=== PATIENT | male | born 1955 | race Caucasian/White ===

== ENCOUNTER 2019-02-10 12:30 | Inpatient (IN) | payer SELFPAY ==
[~2019-02-10] VITALS: Ht 175.3 cm; Wt 81.5 kg
[2019-02-10] VITALS (13 sets, daily range): BP systolic 124–165; BP diastolic 46–84
[~2019-02-10 12:30] MED LIST: AMLO-150 PO; CLON0.1T22 PO
[2019-02-10] MEDS ORDERED: SODIUM CHLORIDE 0.9% 1,000 ML IV ONE (12:35)
--- NOTE | 2019-02-10 12:41 | NUR ---
PT ARRIVES TO ED WITH RESTLESS LEGS AND ANKLE PAIN. PT ALSO REPORTS USING DRUGS (METH, OXYCOTIN) LAST NIGHT AND TODAY. PT REPORTS HE IS UNSURE WHY THE AMBULANCE WAS CALLED BUT NOW HAS A RIDE TO THE [facility]. PT PLACED IN BED AND AT THIS TIME HAS NO APPARENT DISTRESS OR NEEDS AT THIS TIME. VSS AND BG 110
[2019-02-10 12:51] LABS: MEAN CORPUSCULAR HEMOGLOBIN 22.3 pg (27.5-34.5); MEAN PLATELET VOLUME 7.1 fL (7.4-10.4); PLATELET COUNT 442 x10^3/uL (130-400); RED BLOOD COUNT 2.37 x10^6/uL (4.38-5.82); RED CELL DISTRIBUTION WIDTH 23.9 % (9.4-14.8)
[2019-02-10] MEDS ORDERED: PANTOPRAZOLE 40 MG IV IVPush ONE (13:00)
[2019-02-10] MEDS ORDERED: SODIUM CHLORIDE FLUSH 10ML SYR IVF ONE (13:00)
[2019-02-10 13:01] LABS: ALANINE AMINOTRANSFERASE 73 U/L (12-78); ALBUMIN 3.6 g/dL (3.4-5.0); ANION GAP 18 mmol/L (5-15); CALCIUM 8.1 mg/dL (8.5-10.1); CHLORIDE 107 mmol/L (98-107)
--- NOTE | 2019-02-10 13:02 | NUR ---
PIV PLACED IN PT, CRITICAL LABS REPORTS. PA AWARE AND RETYPE ORDERED.
[2019-02-10 13:04] LABS: ALKALINE PHOSPHATASE 98 U/L (45-117); BILIRUBIN,TOTAL 0.6 mg/dL (0.2-1.0); TOTAL PROTEIN 8.4 g/dL (6.4-8.2)
[2019-02-10] MEDS ORDERED: SODIUM BICARBONATE 1 MEQ/ML, 50ML VIAL ONE (13:14)
[2019-02-10] MEDS ORDERED: INSULIN SINGLE DOSE, ER SQ-INSULIN ONE (13:15)
[2019-02-10] MEDS ORDERED: CALCIUM CHLORIDE 10%, 10ML SYR ONE (13:16)
[2019-02-10] MEDS ORDERED: PANTOPRAZOLE 40 MG IV ONE (13:16)
[2019-02-10 13:17] LABS: BASOPHILS # (AUTO) 0.06 x10^3/uL (0-0.1); BASOPHILS % (AUTO) 0 % (0-1); EOSINOPHILS # (AUTO) 0.01 x10^3/uL (0-0.4); EOSINOPHILS % (AUTO) 0 % (1-7); LYMPHOCYTES # (AUTO) 1.34 x10^3/uL (1-3.4); LYMPHOCYTES % (AUTO) 10 % (22-44); MD MORPH REVIEW ONLY; MONOCYTES % (AUTO) 7 % (2-9); NEUTROPHILS % (AUTO) 83 % (42-75)
[2019-02-10 13:18] LABS: <PLATELET ESTIMATE> INCREASED; <PLT MORPHOLOGY> NORMAL PLT MORPH
[2019-02-10 13:19] LABS: ANISOCYTOSIS 3+; MICROCYTOSIS 2+
[2019-02-10 13:20] LABS: HYPOCHROMIA 1+; OVALOCYTES 1+; POLYCHROMASIA 1+
[2019-02-10 13:24] LABS: BASOPHILS # (AUTO) 0.31 x10^3/uL (0-0.1); BASOPHILS % (AUTO) 2 % (0-1); EOSINOPHILS % (AUTO) 0 % (1-7); LYMPHOCYTES # (AUTO) 0.94 x10^3/uL (1-3.4); LYMPHOCYTES % (AUTO) 7 % (22-44); MD NO; MEAN CORPUSCULAR HEMOGLOBIN 21.6 pg (27.5-34.5); MEAN CORPUSCULAR VOLUME 71.9 fL (81-97); MEAN PLATELET VOLUME 7.4 fL (7.4-10.4); MONOCYTES # (AUTO) 0.79 x10^3/uL (0.2-0.8); MONOCYTES % (AUTO) 6 % (2-9); NEUTROPHILS # (AUTO) 11.26 x10^3/uL (1.8-6.8); NEUTROPHILS % (AUTO) 85 % (42-75); PLATELET COUNT 467 x10^3/uL (130-400); RED BLOOD COUNT 2.36 x10^6/uL (4.38-5.82); RED CELL DISTRIBUTION WIDTH 24.4 % (9.4-14.8)
[2019-02-10] MEDS ORDERED: CALCIUM CHLORIDE 10%, 10ML SYR IVPush ONE (13:30)
[2019-02-10] MEDS ORDERED: SODIUM BICARB 8.4%, 50ML SYRINGE IVPush ONE (13:30)
[2019-02-10] MEDS ORDERED: INSULIN REGULAR 100 UNITS/ML, 3ML VIAL IVPush ONE (13:30)
[2019-02-10] MEDS ORDERED: DEXTROSE 50%, 50ML SYRINGE IVPush ONE (13:30)
[2019-02-10 13:34] LABS: INTERNATIONAL NORMALIZED RATIO 1.4 (0.93-1.1); PROTHROMBIN TIME 14.5 Seconds (9.6-11.5)
--- NOTE | 2019-02-10 13:40 | NUR ---
SECOND PIV PLACED, PT MEDICATED PER EMAR.
[2019-02-10 13:57] LABS: ACETONE, SERUM Small (20mg/dL) mg/dL (Negative)
[2019-02-10] MEDS ORDERED: SODIUM CHLORIDE FLUSH 10ML SYR IVF PRN (14:00)
--- NOTE | 2019-02-10 14:32 | NUR ---
BLOOD STARTED, GIANLUCA PALACIOS SECOND CHECK. BLOOD ON PUMP AT THIS TIME.
--- NOTE | 2019-02-10 15:08 | NUR ---
RN ON FLOOR INFORMER OF VITALS NEEDED TO COMPLETE ON BLOOD TRANSFUSION.
[2019-02-10] MEDS ORDERED: DOCUSATE 100 MG CAPSULE PO PRN (16:30)
[2019-02-10] MEDS ORDERED: ONDANSETRON 2MG/ML, 2ML IVPush PRN (16:30)
[2019-02-10] MEDS ORDERED: LORazepam 2 MG/ML, 1ML IV PRN ×5 (16:30)
[2019-02-10] MEDS ORDERED: CYCLOBENZAPRINE 10 MG TABLET PO PRN (16:30)
[2019-02-10] MEDS ORDERED: GUAIFENESIN/COD200MG-20MG/10ML LIQUID PO PRN (16:30)
[2019-02-10] MEDS ORDERED: ACETAMINOPHEN 325 MG TABLET PO PRN (16:30)
[2019-02-10] MEDS ORDERED: NITROGLYCERIN 0.4 MG BOTTLE (25 TABS) SL PRN (16:30)
[2019-02-10] MEDS: LACTULOSE 20 GM/30 ML UDC PO SCH ×2 (17:00→21:03)
[2019-02-10] MEDS: LACTATED RINGERS 1,000 ML IV SCH (17:08)
[2019-02-10 17:49] LABS: ANION GAP 12 mmol/L (5-15); CALCIUM 8.3 mg/dL (8.5-10.1); CHLORIDE 107 mmol/L (98-107)
[2019-02-10] MEDS: THIAMINE 100MG TABLET PO SCH (21:03)
[2019-02-10 21:22] LABS: MICROSCOPIC NOT IND
[2019-02-10 21:29] LABS: CULTURE INDICATED? NO
[2019-02-10 21:36] LABS: AMPHETAMINE SCREEN, URINE Positive (Negative); BARBITURATE SCREEN, URINE Negative (Negative); BENZODIAZEPINE SCREEN, URINE Positive (Negative); CANNABINOID SCREEN, URINE Negative (Negative); CHLORIDE,URINE RANDOM 26 mmol/L; COCAINE SCREEN, URINE Negative (Negative); METHADONE SCREEN, URINE Negative (Negative); OPIATE SCREEN, URINE Positive (Negative); POTASSIUM,URINE RANDOM 75 mmol/L; PROTEIN/CREATININE RATIO,URINE 262 (0-200); SODIUM,URINE RANDOM 25 mmol/L; TOTAL PROTEIN,URINE RANDOM 32 mg/dL (0-12)
[2019-02-10 21:40] LABS: OSMOLALITY,URINE 475 mOsm/kg (500-850)
[2019-02-11] MEDS: LACTATED RINGERS 1,000 ML IV SCH ×3 (01:27→18:24)
[2019-02-11 01:57] VITALS: BP_SYST 138; BP_SYST 176; BP_DIAS 76; BP_DIAS 77
[2019-02-11 06:44] VITALS: BP 152/91
[2019-02-11 07:01] LABS: MEAN CORPUSCULAR HEMOGLOBIN 24.8 pg (27.5-34.5); MEAN CORPUSCULAR HGB CONC 32.7 g/dL (33.2-36.2); MEAN CORPUSCULAR VOLUME 75.9 fL (81-97); MEAN PLATELET VOLUME 6.8 fL (7.4-10.4); PLATELET COUNT 243 x10^3/uL (130-400); RED BLOOD COUNT 3.23 x10^6/uL (4.38-5.82); RED CELL DISTRIBUTION WIDTH 21.6 % (9.4-14.8)
[2019-02-11 07:10] LABS: ALANINE AMINOTRANSFERASE 181 U/L (12-78); ALBUMIN 3.3 g/dL (3.4-5.0); ANION GAP 6 mmol/L (5-15); CALCIUM 7.9 mg/dL (8.5-10.1); CHLORIDE 109 mmol/L (98-107); CREATININE 1.69 mg/dL (0.7-1.3)
[2019-02-11 07:12] LABS: ALKALINE PHOSPHATASE 96 U/L (45-117); BILIRUBIN,TOTAL 0.6 mg/dL (0.2-1.0); TOTAL PROTEIN 8.1 g/dL (6.4-8.2)
[2019-02-11 07:21] LABS: BASOPHILS # (AUTO) 0.05 x10^3/uL (0-0.1); BASOPHILS % (AUTO) 1 % (0-1); EOSINOPHILS # (AUTO) 0.22 x10^3/uL (0-0.4); EOSINOPHILS % (AUTO) 3 % (1-7); LYMPHOCYTES # (AUTO) 1.14 x10^3/uL (1-3.4); LYMPHOCYTES % (AUTO) 15 % (22-44); MD SCAN; MONOCYTES # (AUTO) 0.64 x10^3/uL (0.2-0.8); MONOCYTES % (AUTO) 9 % (2-9); NEUTROPHILS # (AUTO) 5.42 x10^3/uL (1.8-6.8); NEUTROPHILS % (AUTO) 73 % (42-75)
[2019-02-11] MEDS ORDERED: ERGOCALCIFEROL 50,000 UNIT CAPSULE PO SCH (09:00)
[2019-02-11] MEDS: LACTULOSE 20 GM/30 ML UDC PO SCH (10:50)
[2019-02-11] MEDS: MULTIVITAMINS/MINERALS TABLET PO SCH (10:51)
[2019-02-11] MEDS: THIAMINE 100MG TABLET PO SCH ×2 (10:51→20:25)
[2019-02-11] MEDS: FOLIC ACID 1 MG TABLET PO SCH (10:51)
[2019-02-11] MEDS: IRON SUCROSE COMPLEX 100MG/5ML IV SCH (10:51)
[2019-02-11 13:39] VITALS: BP 164/86
[2019-02-11 14:18] LABS: OCCULT BLOOD POSITIVE (NEGATIVE)
[2019-02-11] MEDS: PANTOPROZOLE 40MG TABLET PO SCH (15:55)
[2019-02-11 18:45] VITALS: BP 171/84
[2019-02-11 20:26] VITALS: BP 178/84
[2019-02-11 22:02] VITALS: BP 173/83
[2019-02-11] MEDS: hydrALAzine 20 MG/ML, 1ML IVPush PRN (22:03)
[2019-02-11] MEDS: OXYcodone IR 5MG TABLET PO PRN (22:03)
[2019-02-12] VITALS (7 sets, daily range): BP systolic 161–177; BP diastolic 79–90
[2019-02-12] MEDS: LACTATED RINGERS 1,000 ML IV SCH (02:12)
[2019-02-12] MEDS: PANTOPROZOLE 40MG TABLET PO SCH (05:21)
[2019-02-12 06:02] LABS: ALANINE AMINOTRANSFERASE 161 U/L (12-78); ALBUMIN 2.9 g/dL (3.4-5.0); ANION GAP 6 mmol/L (5-15); CALCIUM 7.7 mg/dL (8.5-10.1); CHLORIDE 107 mmol/L (98-107)
[2019-02-12 06:05] LABS: ALKALINE PHOSPHATASE 95 U/L (45-117); BILIRUBIN,TOTAL 0.4 mg/dL (0.2-1.0); CREATININE 0.91 mg/dL (0.7-1.3); TOTAL PROTEIN 7.4 g/dL (6.4-8.2)
[2019-02-12 06:11] LABS: MEAN CORPUSCULAR HEMOGLOBIN 24.6 pg (27.5-34.5); MEAN CORPUSCULAR HGB CONC 32.5 g/dL (33.2-36.2); MEAN CORPUSCULAR VOLUME 75.7 fL (81-97); MEAN PLATELET VOLUME 6.5 fL (7.4-10.4); PLATELET COUNT 195 x10^3/uL (130-400); RED BLOOD COUNT 3.14 x10^6/uL (4.38-5.82); RED CELL DISTRIBUTION WIDTH 22.4 % (9.4-14.8)
[2019-02-12 06:40] LABS: MD MORPH REVIEW ONLY
[2019-02-12 06:42] LABS: ANISOCYTOSIS 2+; BASOPHILS # (AUTO) 0.03 x10^3/uL (0-0.1); BASOPHILS % (AUTO) 1 % (0-1); EOSINOPHILS # (AUTO) 0.09 x10^3/uL (0-0.4); EOSINOPHILS % (AUTO) 2 % (1-7); HYPOCHROMIA 1+; LYMPHOCYTES % (AUTO) 16 % (22-44); MICROCYTOSIS 1+; MONOCYTES # (AUTO) 0.55 x10^3/uL (0.2-0.8); MONOCYTES % (AUTO) 10 % (2-9); NEUTROPHILS # (AUTO) 4.12 x10^3/uL (1.8-6.8); NEUTROPHILS % (AUTO) 73 % (42-75); POLYCHROMASIA 1+
[2019-02-12 06:43] LABS: <PLATELET ESTIMATE> ADEQUATE; <PLT MORPHOLOGY> NORMAL PLT MORPH; OVALOCYTES 1+
[2019-02-12] MEDS ORDERED: POTASSIUM PHOSPHATE 44 MEQ in SODIUM CHLORIDE 0.9% 500 ML IV ONE (07:30)
[2019-02-12] MEDS: OXYcodone IR 5MG TABLET PO PRN ×2 (09:30→20:22)
[2019-02-12] MEDS: IRON SUCROSE COMPLEX 100MG/5ML IV SCH (09:53)
[2019-02-12] MEDS: THIAMINE 100MG TABLET PO SCH ×2 (09:53→20:22)
[2019-02-12] MEDS: MULTIVITAMINS/MINERALS TABLET PO SCH (09:53)
[2019-02-12] MEDS: LACTULOSE 20 GM/30 ML UDC PO SCH (09:53)
[2019-02-12] MEDS: FOLIC ACID 1 MG TABLET PO SCH (09:53)
[2019-02-12] MEDS: AMLODIPINE 5 MG TABLET PO SCH (12:48)
[2019-02-13] VITALS (7 sets, daily range): BP systolic 149–187; BP diastolic 78–97
[2019-02-13] MEDS: OXYcodone IR 5MG TABLET PO PRN ×3 (02:49→13:02)
[2019-02-13] MEDS: hydrALAzine 20 MG/ML, 1ML IVPush PRN ×2 (03:12→10:52)
[2019-02-13] MEDS: PANTOPROZOLE 40MG TABLET PO SCH (05:09)
[2019-02-13 05:41] LABS: ANION GAP 4 mmol/L (5-15); CALCIUM 7.6 mg/dL (8.5-10.1); CHLORIDE 106 mmol/L (98-107)
[2019-02-13 06:01] LABS: MEAN CORPUSCULAR HEMOGLOBIN 24.5 pg (27.5-34.5); MEAN CORPUSCULAR HGB CONC 32.1 g/dL (33.2-36.2); MEAN CORPUSCULAR VOLUME 76.3 fL (81-97); PLATELET COUNT 162 x10^3/uL (130-400); RED BLOOD COUNT 3.25 x10^6/uL (4.38-5.82); RED CELL DISTRIBUTION WIDTH 23.3 % (9.4-14.8)
[2019-02-13 06:21] LABS: BASOPHILS # (AUTO) 0.03 x10^3/uL (0-0.1); BASOPHILS % (AUTO) 1 % (0-1); EOSINOPHILS # (AUTO) 0.08 x10^3/uL (0-0.4); EOSINOPHILS % (AUTO) 2 % (1-7); LYMPHOCYTES # (AUTO) 0.83 x10^3/uL (1-3.4); LYMPHOCYTES % (AUTO) 16 % (22-44); MD SCAN; MONOCYTES # (AUTO) 0.47 x10^3/uL (0.2-0.8); MONOCYTES % (AUTO) 9 % (2-9); NEUTROPHILS # (AUTO) 3.73 x10^3/uL (1.8-6.8); NEUTROPHILS % (AUTO) 73 % (42-75)
[2019-02-13] MEDS ORDERED: POTASSIUM PHOSPHATE 44 MEQ in SODIUM CHLORIDE 0.9% 500 ML IV ONE (07:00)
[2019-02-13] MEDS: AMLODIPINE 5 MG TABLET PO SCH (08:34)
[2019-02-13] MEDS: MULTIVITAMINS/MINERALS TABLET PO SCH (08:34)
[2019-02-13] MEDS: IRON SUCROSE COMPLEX 100MG/5ML IV SCH (08:34)
[2019-02-13] MEDS: FOLIC ACID 1 MG TABLET PO SCH (08:35)
[2019-02-13] MEDS: THIAMINE 100MG TABLET PO SCH (08:35)
[2019-02-13] MEDS: LACTULOSE 20 GM/30 ML UDC PO SCH (08:46)
[2019-02-13] MEDS ORDERED: FOLI-17 PO (11:11)
[2019-02-13] MEDS ORDERED: MULT-484 PO (11:11)
[2019-02-13] MEDS ORDERED: THIA100T67 PO (11:11)
[2019-02-13] MEDS ORDERED: ERGO500017 PO (11:11)
[2019-02-13] MEDS ORDERED: PANT40TA5 PO (11:11)
[2019-02-13] MEDS ORDERED: FERR325T18 PO (11:11)
[2019-02-13] MEDS ORDERED: AMLO10TA8 PO (11:11)
[2019-02-13] MEDS ORDERED: LACT10SO28 PO (12:25)
[2019-02-13] MEDS ORDERED: PHOS250T3 PO (12:50)
== END 2019-02-13 17:55 | disposition home or self-care (01) | DRG 683 ==
LOC: ED 13:50 → EDIP 13:51 → ED 14:03 → 4EST 15:46
PROVIDERS: ADMIT Hospitalist; ATTEND Hospitalist
PROC: 30233N1 Transfusion of Nonautologous Red Blood Cells into Peripheral Vein, Percutaneous Approach (ICD-10-PCS; principal; 2019-02-10)
DX: N17.0 Acute kidney failure with tubular necrosis (principal); E72.20 Disorder of urea cycle metabolism, unspecified; E86.0 Dehydration; E87.5 Hyperkalemia; D50.9 Iron deficiency anemia, unspecified; E83.39 Other disorders of phosphorus metabolism; D47.3 Essential (hemorrhagic) thrombocythemia; F10.10 Alcohol abuse, uncomplicated; F15.10 Other stimulant abuse, uncomplicated; C61 Malignant neoplasm of prostate; I10 Essential (primary) hypertension; K72.90 Hepatic failure, unspecified without coma; K76.0 Fatty (change of) liver, not elsewhere classified; N40.1 Benign prostatic hyperplasia with lower urinary tract symptoms; R39.14 Feeling of incomplete bladder emptying; F19.10 Other psychoactive substance abuse, uncomplicated; G89.29 Other chronic pain; K64.4 Residual hemorrhoidal skin tags; K64.8 Other hemorrhoids; Z91.14 Patient's other noncompliance with medication regimen; Z59.0 Homelessness; Z79.4 Long term (current) use of insulin
CPT/HCPCS: 36415; 71045; 74021; 76700; 80048; 80053; 80307; 81003; 82010; 82140; 82272; 82306; 82436; 82570; 82728; 82800; 83540; 83550; 83735; 83935; 83970; 84100; 84133; 84156; 84300; 84466; 85025; 85610; 86850; 86900; 86923; 87205; 93005; 99285; G0378; J1756; J1815; C9113; J0360; J2060; J7040; J7120; P9016

== ENCOUNTER 2020-02-11 21:10 | Inpatient (IN) | payer MEDICARE, OTHER ==
[~2020-02-11] VITALS: Ht 172.7 cm; Wt 74.8 kg
[~2020-02-11 21:10] MED LIST changes: +AMLO10TA8 PO; +ERGO500017 PO; +FERR325T18 PO; +FOLI-17 PO; +FURO40TA6 PO; +LACT10SO28 PO; +MULT-484 PO; +OMEP-110 PO; +PANT40TA5 PO; +PHOS250T3 PO; +SPIR100T PO; +SUCR1TAB33 PO; +THIA100T67 PO
--- NOTE | 2020-02-11 21:23 | NUR ---
tobacco primer machine operator: christiana to get an accurate [facility].
--- NOTE | 2020-02-11 21:55 | NUR ---
MD AT BEDSIDE TO ASSESS PT
--- NOTE | 2020-02-11 22:00 | NUR ---
THIS IS A 64Y M THAT COMES IN FOR SHOULDER PAIN/ ABD DISTENTION. PT HAS HX OF ACITES AND BONE CA. PT ABLE TO SPEAK IN FULL SENTENCES AND INTERACT WITH STAFF APPROPRIATELY. PT CONNECTED TO MONITORING, VSS, LAWSONN
[2020-02-11 22:27] LABS: MEAN CORPUSCULAR HEMOGLOBIN 19.3 pg (27.5-34.5); MEAN CORPUSCULAR VOLUME 64.7 fL (81-97); MEAN PLATELET VOLUME 7.7 fL (7.4-10.4); PLATELET COUNT 299 x10^3/uL (130-400); RED BLOOD COUNT 2.73 x10^6/uL (4.38-5.82); RED CELL DISTRIBUTION WIDTH 21.5 % (9.4-14.8)
[2020-02-11 22:29] LABS: INTERNATIONAL NORMALIZED RATIO 1.21 (0.93-1.1); PROTHROMBIN TIME 12.8 Seconds (9.6-11.5)
[2020-02-11 22:30] LABS: ALANINE AMINOTRANSFERASE 9 U/L (12-78); ANION GAP 6 mmol/L (5-15); CHLORIDE 108 mmol/L (98-107); CREATININE 1.29 mg/dL (0.7-1.3)
[2020-02-11 22:32] LABS: MEAN CORPUSCULAR HGB CONC 29.9 g/dL (33.2-36.2)
[2020-02-11] MEDS ORDERED: PANTOPRAZOLE 80 MG in SODIUM CHLORIDE 0.9% 50 ML IVPB ONE (22:32)
[2020-02-11 22:35] LABS: ALKALINE PHOSPHATASE 73 U/L (45-117); BILIRUBIN,TOTAL 0.2 mg/dL (0.2-1.0); TOTAL PROTEIN 8.3 g/dL (6.4-8.2); TROPONIN I < 0.015 ng/mL (0.000-0.045)
--- NOTE | 2020-02-11 23:10 | NUR ---
piv started labs drawn and sent with lab
[2020-02-11 23:21] LABS: MD YES
[2020-02-11 23:23] LABS: LYMPH#(MANUAL) 0.31 x10^3/uL (1-3.4); LYMPHS% (MANUAL) 2 % (22-44); MONOS#(MANUAL) 0.46 x10^3/uL (0.3-2.7); MONOS% (MANUAL) 3 % (2-9); SEG#(MANUAL) 14.63 x10^3/uL (1.8-6.8); SEGS% (MANUAL) 95 % (42-75)
[2020-02-11 23:24] LABS: ANISOCYTOSIS 1+; HYPOCHROMIA 2+; MICROCYTOSIS 1+
[2020-02-11 23:25] LABS: <PLATELET ESTIMATE> ADEQUATE; <PLT MORPHOLOGY> NORMAL PLT MORPH; OVALOCYTES 1+; POLYCHROMASIA 1+
--- NOTE | 2020-02-11 23:28 | NUR ---
PT REQ ASSISTANCE WITH GURNEY POSITIONING, PT REPOSITIONED, PT BECAME ANGRY WITH RN STS SHOULDER IS NOW ALL TORN UP, PT DEMANDING NEW RN.
[2020-02-11] MEDS ORDERED: OCTREOTIDE 50 MCG/ML, 1ML (0.05MG/ML) IVPush ONE (23:30)
[2020-02-11] MEDS ORDERED: MORPHINE SULFATE 4 MG/ML, 1ML IVPush PRN (23:30)
[2020-02-11] MEDS ORDERED: ONDANSETRON 2MG/ML, 2ML IVPush PRN (23:30)
[2020-02-11] MEDS ORDERED: MORPHINE SULFATE 4 MG/ML, 1ML ONE (23:34)
[2020-02-11] MEDS ORDERED: ONDANSETRON 2MG/ML, 2ML ONE (23:34)
--- NOTE | 2020-02-11 23:38 | NUR ---
REPORT TO KRISTAN PALACIOS
[2020-02-12] VITALS (18 sets, daily range): BP systolic 125–157; BP diastolic 74–84
[2020-02-12] MEDS ORDERED: OCTREOTIDE 500 MCG in SODIUM CHLORIDE 0.9% 99 ML IV SCH
[2020-02-12] MEDS ORDERED: OCTREOTIDE 50 MCG/ML, 1ML (0.05MG/ML) IV ONE
[2020-02-12] MEDS ORDERED: ACETAMINOPHEN 325 MG TABLET PO PRN
[2020-02-12] MEDS ORDERED: ONDANSETRON 2MG/ML, 2ML IV PRN
[2020-02-12] MEDS ORDERED: LORazepam 2 MG/ML, 1ML IVPush PRN (01:00)
[2020-02-12] MEDS ORDERED: THIAMINE 200 MG in SODIUM CHLORIDE 0.9% 50 ML IV ONE (01:00)
[2020-02-12] MEDS ORDERED: LIDODERM 5% PATCH TD PRN (01:00)
[2020-02-12] MEDS ORDERED: hydrALAzine 20 MG/ML, 1ML IVPush PRN (01:00)
[2020-02-12] MEDS: FUROSEMIDE 20 MG/2 ML IV SCH ×3 (01:49→20:31)
[2020-02-12] MEDS: morphine SULFATE 10 MG/ML, 1ML IVPush PRN ×6 (01:49→20:39)
[2020-02-12] MEDS: PANTOPRAZOLE 80 MG in SODIUM CHLORIDE 0.9% 100 ML IV SCH ×3 (02:33→22:06)
[2020-02-12] MEDS: OCTREOTIDE 500 MCG in SODIUM CHLORIDE 0.9% 99 ML IV PRN (02:35)
[2020-02-12 06:27] LABS: ALANINE AMINOTRANSFERASE 9 U/L (12-78); ANION GAP 5 mmol/L (5-15); CALCIUM 8.1 mg/dL (8.5-10.1); CHLORIDE 108 mmol/L (98-107); CREATININE 1.25 mg/dL (0.7-1.3)
[2020-02-12 06:29] LABS: ALKALINE PHOSPHATASE 75 U/L (45-117); BILIRUBIN,TOTAL 0.9 mg/dL (0.2-1.0); TOTAL PROTEIN 8.4 g/dL (6.4-8.2)
[2020-02-12 06:34] LABS: MEAN CORPUSCULAR HEMOGLOBIN 20.8 pg (27.5-34.5); MEAN CORPUSCULAR HGB CONC 30.7 g/dL (33.2-36.2); MEAN CORPUSCULAR VOLUME 67.7 fL (81-97); MEAN PLATELET VOLUME 7.7 fL (7.4-10.4); PLATELET COUNT 268 x10^3/uL (130-400); RED BLOOD COUNT 3.02 x10^6/uL (4.38-5.82); RED CELL DISTRIBUTION WIDTH 24.3 % (9.4-14.8)
[2020-02-12 06:43] LABS: MD YES
[2020-02-12 07:47] LABS: EOS#(MANUAL) 0.15 x10^3/uL (0.0-0.4); EOS% (MANUAL) 1 % (1-7); LYMPH#(MANUAL) 0.61 x10^3/uL (1-3.4); LYMPHS% (MANUAL) 4 % (22-44); MONOS#(MANUAL) 0.46 x10^3/uL (0.3-2.7); MONOS% (MANUAL) 3 % (2-9); SEG#(MANUAL) 13.98 x10^3/uL (1.8-6.8); SEGS% (MANUAL) 92 % (42-75)
[2020-02-12 07:49] LABS: HYPOCHROMIA 2+
[2020-02-12 07:50] LABS: ANISOCYTOSIS 2+; MICROCYTOSIS 2+
[2020-02-12 07:52] LABS: POLYCHROMASIA 1+
[2020-02-12 07:56] LABS: <PLATELET ESTIMATE> ADEQUATE; <PLT MORPHOLOGY> NORMAL PLT MORPH
[2020-02-12] MEDS: LACTULOSE 10 GM/15 ML UDC PO SCH ×2 (08:37→20:39)
[2020-02-12] MEDS ORDERED: LIDOCAINE 1%, 10ML ONE (09:01)
[2020-02-12] MEDS ORDERED: ACETAMINOPHEN 500 MG TABLET PO PRN (11:00)
[2020-02-12] MEDS: OXYcodone/APAP 5/325MG TABLET PO PRN ×2 (11:22→18:09)
[2020-02-12] MEDS: CEFTRIAXONE PMX 2GM/50ML 50 ML IV SCH (14:34)
[2020-02-12] MEDS ORDERED: ALBUMIN HUMAN 25% 100 ML IV ONE (17:00)
[2020-02-12] MEDS ORDERED: ALBUMIN HUMAN 25% 50 ML IV ONE (17:00)
[2020-02-13 00:25] VITALS: BP 170/82
[2020-02-13] MEDS: morphine SULFATE 10 MG/ML, 1ML IVPush PRN ×5 (00:37→20:13)
[2020-02-13] MEDS: OXYcodone/APAP 5/325MG TABLET PO PRN ×2 (03:19→08:07)
[2020-02-13 05:06] LABS: MEAN CORPUSCULAR HEMOGLOBIN 22.3 pg (27.5-34.5); MEAN CORPUSCULAR HGB CONC 30.9 g/dL (33.2-36.2); MEAN CORPUSCULAR VOLUME 72.2 fL (81-97); MEAN PLATELET VOLUME 8.2 fL (7.4-10.4); PLATELET COUNT 238 x10^3/uL (130-400); RED BLOOD COUNT 3.31 x10^6/uL (4.38-5.82); RED CELL DISTRIBUTION WIDTH 25.7 % (9.4-14.8)
[2020-02-13 05:07] LABS: ALBUMIN 2.1 g/dL (3.4-5.0); ANION GAP 7 mmol/L (5-15); CALCIUM 7.7 mg/dL (8.5-10.1); CHLORIDE 107 mmol/L (98-107); CREATININE 1.24 mg/dL (0.7-1.3); IRON LEVEL 12 mcg/dL (65-175)
[2020-02-13 05:10] LABS: ALANINE AMINOTRANSFERASE < 6 U/L (12-78)
[2020-02-13 05:11] LABS: % IRON SATURATION 4 % (20-55); ALKALINE PHOSPHATASE 67 U/L (45-117); BILIRUBIN,TOTAL 0.5 mg/dL (0.2-1.0); TOTAL IRON BINDING CAPACITY 289 mcg/dL (250-450); TOTAL PROTEIN 7.9 g/dL (6.4-8.2); TRANSFERRIN 216 mg/dL (200-360)
[2020-02-13 05:29] LABS: ANISOCYTOSIS 2+; BASOPHILS # (AUTO) 0.01 x10^3/uL (0-0.1); BASOPHILS % (AUTO) 0 % (0-1); EOSINOPHILS # (AUTO) 0.15 x10^3/uL (0-0.4); EOSINOPHILS % (AUTO) 1 % (1-7); HYPOCHROMIA 2+; LYMPHOCYTES # (AUTO) 0.62 x10^3/uL (1-3.4); LYMPHOCYTES % (AUTO) 5 % (22-44); MD MORPH REVIEW ONLY; MICROCYTOSIS 2+; MONOCYTES # (AUTO) 0.56 x10^3/uL (0.2-0.8); MONOCYTES % (AUTO) 5 % (2-9); NEUTROPHILS # (AUTO) 10.89 x10^3/uL (1.8-6.8); NEUTROPHILS % (AUTO) 89 % (42-75); OVALOCYTES 1+; POLYCHROMASIA 1+
[2020-02-13 05:30] LABS: <PLATELET ESTIMATE> ADEQUATE; <PLT MORPHOLOGY> NORMAL PLT MORPH; TEAR DROPS 1+
[2020-02-13 07:09] VITALS: BP 159/78
[2020-02-13] MEDS: FOLIC ACID 1 MG TABLET PO SCH (08:07)
[2020-02-13] MEDS: LACTULOSE 10 GM/15 ML UDC PO SCH ×2 (08:07→20:12)
[2020-02-13] MEDS: FUROSEMIDE 20 MG/2 ML IV SCH ×2 (08:07→16:26)
[2020-02-13] MEDS: MULTIVITAMIN 1 TABLET PO SCH (08:07)
[2020-02-13] MEDS: THIAMINE 100MG TABLET PO SCH (08:07)
[2020-02-13] MEDS: OCTREOTIDE 500 MCG in SODIUM CHLORIDE 0.9% 99 ML IV PRN (08:08)
[2020-02-13] MEDS: PANTOPRAZOLE 80 MG in SODIUM CHLORIDE 0.9% 100 ML IV SCH (08:08)
[2020-02-13] MEDS: SPIRONOLACTONE 25 MG TABLET PO SCH (08:53)
[2020-02-13 12:43] VITALS: BP 143/74
[2020-02-13] MEDS: IRON SUCROSE COMPLEX 100MG/5ML IV SCH (13:10)
[2020-02-13] MEDS: CEFTRIAXONE PMX 2GM/50ML 50 ML IV SCH (13:10)
[2020-02-13] MEDS: PANTOPRAZOLE 20MG TABLET PO SCH (16:26)
[2020-02-13 19:31] VITALS: BP 135/70
[2020-02-14 01:00] VITALS: BP 167/83
[2020-02-14] MEDS: morphine SULFATE 10 MG/ML, 1ML IVPush PRN ×4 (01:05→21:26)
[2020-02-14] MEDS: PANTOPRAZOLE 20MG TABLET PO SCH ×2 (06:03→17:42)
[2020-02-14] MEDS: OXYcodone/APAP 5/325MG TABLET PO PRN ×3 (06:03→18:33)
[2020-02-14 06:07] LABS: OCCULT BLOOD NEGATIVE (NEGATIVE)
[2020-02-14 06:32] VITALS: BP 140/68
[2020-02-14 06:33] LABS: MEAN CORPUSCULAR HEMOGLOBIN 22.1 pg (27.5-34.5); MEAN CORPUSCULAR HGB CONC 30.5 g/dL (33.2-36.2); MEAN CORPUSCULAR VOLUME 72.3 fL (81-97); MEAN PLATELET VOLUME 7.9 fL (7.4-10.4); PLATELET COUNT 241 x10^3/uL (130-400); RED BLOOD COUNT 3.51 x10^6/uL (4.38-5.82); RED CELL DISTRIBUTION WIDTH 26.7 % (9.4-14.8)
[2020-02-14 06:38] LABS: ALBUMIN 1.9 g/dL (3.4-5.0); ANION GAP 5 mmol/L (5-15); CALCIUM 7.6 mg/dL (8.5-10.1); CHLORIDE 105 mmol/L (98-107)
[2020-02-14 06:42] LABS: ALANINE AMINOTRANSFERASE 7 U/L (12-78); ALKALINE PHOSPHATASE 72 U/L (45-117); BILIRUBIN,TOTAL 0.4 mg/dL (0.2-1.0); CREATININE 1.07 mg/dL (0.7-1.3); TOTAL PROTEIN 7.5 g/dL (6.4-8.2)
[2020-02-14 07:16] LABS: MD YES
[2020-02-14 07:44] LABS: BAND#(MANUAL) 0.09 x10^3/uL; BANDS%(MANUAL) 1 % (0-7); EOS#(MANUAL) 0.26 x10^3/uL (0.0-0.4); EOS% (MANUAL) 3 % (1-7); LYMPH#(MANUAL) 0.53 x10^3/uL (1-3.4); LYMPHS% (MANUAL) 6 % (22-44); MONOS#(MANUAL) 0.26 x10^3/uL (0.3-2.7); MONOS% (MANUAL) 3 % (2-9); NRBC % (MANUAL) 1 % (0-1); REACTIVE LYMPHS # (MANUAL) 0.09 x10^3/uL (0-0); REACTIVE LYMPHS % (MANUAL) 1 % (0-0); SEG#(MANUAL) 7.57 x10^3/uL (1.8-6.8); SEGS% (MANUAL) 86 % (42-75)
[2020-02-14 07:45] LABS: <PLATELET ESTIMATE> ADEQUATE; ANISOCYTOSIS 2+; HYPOCHROMIA 2+; MICROCYTOSIS 2+; OVALOCYTES 1+; POLYCHROMASIA 1+
[2020-02-14 07:46] LABS: <PLT MORPHOLOGY> NORMAL PLT MORPH
[2020-02-14 09:00] VITALS: BP 148/84
[2020-02-14] MEDS: LACTULOSE 10 GM/15 ML UDC PO SCH ×2 (09:01→21:00)
[2020-02-14] MEDS: FOLIC ACID 1 MG TABLET PO SCH (09:01)
[2020-02-14] MEDS: FUROSEMIDE 20 MG/2 ML IV SCH (09:02)
[2020-02-14] MEDS: THIAMINE 100MG TABLET PO SCH (09:02)
[2020-02-14] MEDS: SPIRONOLACTONE 25 MG TABLET PO SCH (09:02)
[2020-02-14] MEDS: MULTIVITAMIN 1 TABLET PO SCH (09:02)
[2020-02-14] MEDS: IRON SUCROSE COMPLEX 100MG/5ML IV SCH (09:02)
[2020-02-14] MEDS ORDERED: FUROSEMIDE 20 MG TABLET PO SCH (12:00)
[2020-02-14 12:09] VITALS: BP 161/81
[2020-02-14] MEDS: CEFTRIAXONE PMX 2GM/50ML 50 ML IV SCH (14:10)
[2020-02-14 16:17] LABS: OCCULT BLOOD NEGATIVE (NEGATIVE)
[2020-02-14 19:52] VITALS: BP 154/78
[2020-02-15 00:50] VITALS: BP 169/83
[2020-02-15] MEDS: morphine SULFATE 10 MG/ML, 1ML IVPush PRN ×3 (00:53→09:07)
[2020-02-15] MEDS: PANTOPRAZOLE 20MG TABLET PO SCH ×2 (05:19→15:39)
[2020-02-15 06:04] LABS: ALANINE AMINOTRANSFERASE 8 U/L (12-78); ALBUMIN 1.8 g/dL (3.4-5.0); ANION GAP 5 mmol/L (5-15); CALCIUM 7.6 mg/dL (8.5-10.1); CHLORIDE 103 mmol/L (98-107)
[2020-02-15 06:07] LABS: ALKALINE PHOSPHATASE 77 U/L (45-117); BILIRUBIN,TOTAL 0.2 mg/dL (0.2-1.0); CREATININE 0.95 mg/dL (0.7-1.3); TOTAL PROTEIN 7.7 g/dL (6.4-8.2)
[2020-02-15 06:20] LABS: MEAN CORPUSCULAR HGB CONC 30.4 g/dL (33.2-36.2); MEAN CORPUSCULAR VOLUME 72.4 fL (81-97); MEAN PLATELET VOLUME 7.8 fL (7.4-10.4); PLATELET COUNT 239 x10^3/uL (130-400); RED BLOOD COUNT 3.42 x10^6/uL (4.38-5.82)
[2020-02-15 06:51] LABS: BASOPHILS % (AUTO) 0 % (0-1); EOSINOPHILS # (AUTO) 0.18 x10^3/uL (0-0.4); EOSINOPHILS % (AUTO) 3 % (1-7); LYMPHOCYTES # (AUTO) 0.82 x10^3/uL (1-3.4); LYMPHOCYTES % (AUTO) 14 % (22-44); MD SCAN; MONOCYTES # (AUTO) 0.32 x10^3/uL (0.2-0.8); MONOCYTES % (AUTO) 5 % (2-9); NEUTROPHILS # (AUTO) 4.72 x10^3/uL (1.8-6.8); NEUTROPHILS % (AUTO) 78 % (42-75)
[2020-02-15 06:53] VITALS: BP 146/78
[2020-02-15] MEDS: MULTIVITAMIN 1 TABLET PO SCH (08:14)
[2020-02-15] MEDS: FOLIC ACID 1 MG TABLET PO SCH (08:14)
[2020-02-15] MEDS: LACTULOSE 10 GM/15 ML UDC PO SCH ×2 (08:14→20:20)
[2020-02-15] MEDS: IRON SUCROSE COMPLEX 100MG/5ML IV SCH (08:14)
[2020-02-15] MEDS: OXYcodone/APAP 5/325MG TABLET PO PRN ×4 (08:14→20:21)
[2020-02-15] MEDS: FUROSEMIDE 20 MG TABLET PO SCH (08:14)
[2020-02-15] MEDS: SPIRONOLACTONE 25 MG TABLET PO SCH (08:14)
[2020-02-15] MEDS: THIAMINE 100MG TABLET PO SCH (08:14)
[2020-02-15 12:05] VITALS: BP 160/80
[2020-02-15] MEDS: CEFTRIAXONE PMX 2GM/50ML 50 ML IV SCH (13:40)
[2020-02-15 19:25] VITALS: BP 152/81
[2020-02-16] MEDS: OXYcodone/APAP 5/325MG TABLET PO PRN ×3 (01:04→10:01)
[2020-02-16 01:05] VITALS: BP 160/81
[2020-02-16] MEDS: PANTOPRAZOLE 20MG TABLET PO SCH ×2 (05:04→16:44)
[2020-02-16 05:27] LABS: MEAN CORPUSCULAR HEMOGLOBIN 22.4 pg (27.5-34.5); MEAN CORPUSCULAR HGB CONC 31.1 g/dL (33.2-36.2); MEAN CORPUSCULAR VOLUME 71.9 fL (81-97); PLATELET COUNT 229 x10^3/uL (130-400); RED BLOOD COUNT 3.35 x10^6/uL (4.38-5.82); RED CELL DISTRIBUTION WIDTH 28.3 % (9.4-14.8)
[2020-02-16 05:54] LABS: MD YES
[2020-02-16 05:57] LABS: ANISOCYTOSIS 2+; BAND#(MANUAL) 0.05 x10^3/uL; BANDS%(MANUAL) 1 % (0-7); BASOS#(MANUAL) 0.05 x10^3/uL (0-0.1); BASOS% (MANUAL) 1 % (0-1); EOS#(MANUAL) 0.27 x10^3/uL (0.0-0.4); EOS% (MANUAL) 5 % (1-7); HYPOCHROMIA 2+; LYMPH#(MANUAL) 0.65 x10^3/uL (1-3.4); LYMPHS% (MANUAL) 12 % (22-44); MICROCYTOSIS 2+; MONOS#(MANUAL) 0.05 x10^3/uL (0.3-2.7); MONOS% (MANUAL) 1 % (2-9); NRBC % (MANUAL) 1 % (0-1); OVALOCYTES 1+; POLYCHROMASIA 1+; SEG#(MANUAL) 4.32 x10^3/uL (1.8-6.8); SEGS% (MANUAL) 80 % (42-75)
[2020-02-16 05:58] LABS: <PLATELET ESTIMATE> ADEQUATE; <PLT MORPHOLOGY> NORMAL PLT MORPH; TEAR DROPS 1+
[2020-02-16 06:21] VITALS: BP 163/84
[2020-02-16] MEDS: SPIRONOLACTONE 25 MG TABLET PO SCH (07:49)
[2020-02-16] MEDS: THIAMINE 100MG TABLET PO SCH (07:50)
[2020-02-16] MEDS: FUROSEMIDE 20 MG TABLET PO SCH (07:50)
[2020-02-16] MEDS: MULTIVITAMIN 1 TABLET PO SCH (07:50)
[2020-02-16] MEDS: FOLIC ACID 1 MG TABLET PO SCH (07:50)
[2020-02-16] MEDS: LACTULOSE 10 GM/15 ML UDC PO SCH ×2 (07:50→20:50)
[2020-02-16 12:15] VITALS: BP 153/81
[2020-02-16] MEDS: CEFTRIAXONE PMX 2GM/50ML 50 ML IV SCH (13:58)
[2020-02-16] MEDS: OXYcodone/APAP 7.5/325MG TABLET PO PRN ×2 (16:44→20:51)
[2020-02-16 18:53] VITALS: BP 146/78
[2020-02-16] MEDS: TEMAZEPAM 15 MG CAPSULE PO PRN (20:50)
[2020-02-17 01:15] VITALS: BP 157/79
[2020-02-17] MEDS: PANTOPRAZOLE 20MG TABLET PO SCH ×2 (05:19→16:12)
[2020-02-17] MEDS: OXYcodone/APAP 7.5/325MG TABLET PO PRN (05:19)
[2020-02-17] MEDS: FOLIC ACID 1 MG TABLET PO SCH (08:14)
[2020-02-17] MEDS: SPIRONOLACTONE 25 MG TABLET PO SCH (08:14)
[2020-02-17] MEDS: MULTIVITAMIN 1 TABLET PO SCH (08:14)
[2020-02-17] MEDS: THIAMINE 100MG TABLET PO SCH (08:15)
[2020-02-17] MEDS: FUROSEMIDE 20 MG TABLET PO SCH (08:15)
[2020-02-17] MEDS: LACTULOSE 10 GM/15 ML UDC PO SCH ×2 (08:15→20:15)
[2020-02-17 09:04] VITALS: BP 144/84
[2020-02-17] MEDS: OXYcodone/APAP 10/325MG TABLET PO PRN ×3 (09:35→20:16)
[2020-02-17 15:45] VITALS: BP 165/80
[2020-02-17 19:57] VITALS: BP 161/69
[2020-02-17] MEDS: TEMAZEPAM 15 MG CAPSULE PO PRN (20:15)
[2020-02-18 01:20] VITALS: BP 154/87
[2020-02-18] MEDS: OXYcodone/APAP 10/325MG TABLET PO PRN ×4 (05:07→23:13)
[2020-02-18] MEDS: PANTOPRAZOLE 20MG TABLET PO SCH ×2 (05:07→17:34)
[2020-02-18 07:19] VITALS: BP 171/82
[2020-02-18] MEDS: LACTULOSE 10 GM/15 ML UDC PO SCH ×2 (09:52→20:40)
[2020-02-18] MEDS: THIAMINE 100MG TABLET PO SCH (09:53)
[2020-02-18] MEDS: FOLIC ACID 1 MG TABLET PO SCH (09:53)
[2020-02-18] MEDS: MULTIVITAMIN 1 TABLET PO SCH (09:53)
[2020-02-18] MEDS: FUROSEMIDE 20 MG TABLET PO SCH (09:53)
[2020-02-18] MEDS: SPIRONOLACTONE 25 MG TABLET PO SCH (09:53)
[2020-02-18 12:54] VITALS: BP 176/88
[2020-02-18 17:30] VITALS: BP 167/84
[2020-02-18] MEDS: LISINOPRIL 10 MG TABLET PO SCH (17:34)
[2020-02-18 19:23] VITALS: BP 118/67
[2020-02-18 19:30] VITALS: BP 150/85
[2020-02-19 00:34] VITALS: BP 173/88
[2020-02-19] MEDS: PANTOPRAZOLE 20MG TABLET PO SCH ×2 (05:45→16:56)
[2020-02-19] MEDS: OXYcodone/APAP 10/325MG TABLET PO PRN ×4 (05:50→21:17)
[2020-02-19 07:14] VITALS: BP 137/68
[2020-02-19 10:30] VITALS: BP 154/83
[2020-02-19] MEDS: LACTULOSE 10 GM/15 ML UDC PO SCH ×2 (10:41→21:16)
[2020-02-19] MEDS: FUROSEMIDE 20 MG TABLET PO SCH (10:42)
[2020-02-19] MEDS: LISINOPRIL 10 MG TABLET PO SCH (10:42)
[2020-02-19] MEDS: SPIRONOLACTONE 25 MG TABLET PO SCH (10:43)
[2020-02-19] MEDS: FOLIC ACID 1 MG TABLET PO SCH (10:43)
[2020-02-19] MEDS: MULTIVITAMIN 1 TABLET PO SCH (10:43)
[2020-02-19] MEDS: THIAMINE 100MG TABLET PO SCH (10:43)
[2020-02-19 12:15] VITALS: BP 132/78
[2020-02-19 20:43] VITALS: BP 147/73
[2020-02-20 00:06] VITALS: BP 146/78
[2020-02-20] MEDS: OXYcodone/APAP 10/325MG TABLET PO PRN ×2 (01:23→08:06)
[2020-02-20] MEDS: PANTOPRAZOLE 20MG TABLET PO SCH (05:15)
[2020-02-20 06:57] VITALS: BP 167/76
[2020-02-20] MEDS: LACTULOSE 10 GM/15 ML UDC PO SCH (08:04)
[2020-02-20] MEDS: THIAMINE 100MG TABLET PO SCH (08:05)
[2020-02-20] MEDS: MULTIVITAMIN 1 TABLET PO SCH (08:05)
[2020-02-20] MEDS: FUROSEMIDE 20 MG TABLET PO SCH (08:05)
[2020-02-20] MEDS: FOLIC ACID 1 MG TABLET PO SCH (08:05)
[2020-02-20] MEDS: SPIRONOLACTONE 25 MG TABLET PO SCH (08:06)
[2020-02-20] MEDS: LISINOPRIL 10 MG TABLET PO SCH (08:06)
[2020-02-20] MEDS ORDERED: LIDO700A20 TD (09:47)
[2020-02-20] MEDS ORDERED: FURO20TA3 PO (09:47)
[2020-02-20] MEDS ORDERED: LISI-167 PO (09:47)
[2020-02-20] MEDS ORDERED: SPIR25TA PO (09:47)
== END 2020-02-20 15:04 | disposition hospice, home (50) | DRG 432 ==
LOC: ED 22:36 → EDIP 23:26 → 4EST 02-12 00:06
PROVIDERS: ADMIT Family Medicine; ATTEND Internal Medicine
PROC: 0W9G3ZZ Drainage of Peritoneal Cavity, Percutaneous Approach (ICD-10-PCS; principal; 2020-02-12)
PROC: 30233N1 Transfusion of Nonautologous Red Blood Cells into Peripheral Vein, Percutaneous Approach (ICD-10-PCS; 2020-02-12)
DX: K70.31 Alcoholic cirrhosis of liver with ascites (principal); K65.2 Spontaneous bacterial peritonitis; E43 Unspecified severe protein-calorie malnutrition; K76.6 Portal hypertension; D62 Acute posthemorrhagic anemia; C79.51 Secondary malignant neoplasm of bone; K92.1 Melena; B18.2 Chronic viral hepatitis C; D50.9 Iron deficiency anemia, unspecified; F11.10 Opioid abuse, uncomplicated; F41.1 Generalized anxiety disorder; F19.10 Other psychoactive substance abuse, uncomplicated; I10 Essential (primary) hypertension; Z60.2 Problems related to living alone; K70.11 Alcoholic hepatitis with ascites; Z66 Do not resuscitate; Z51.5 Encounter for palliative care; Z85.46 Personal history of malignant neoplasm of prostate; Z87.19 Personal history of other diseases of the digestive system; Z87.11 Personal history of peptic ulcer disease; Z59.0 Homelessness; Z91.19 Patient's noncompliance with other medical treatment and regimen; Z79.899 Other long term (current) drug therapy; Z68.25 Body mass index [BMI] 25.0-25.9, adult; F10.10 Alcohol abuse, uncomplicated; Y90.9 Presence of alcohol in blood, level not specified
CPT/HCPCS: 36415; 36430; 49083; 71045; 80053; 80307; 82042; 82272; 82945; 83540; 83550; 83690; 83735; 83880; 84466; 84484; 85014; 85018; 85025; 85610; 86078; 86480; 86850; 86900; 86923; 87070; 87205; 89051; 93005; 96374; 96375; G0378; J0696; J1756; J2354; J2405; J3411; P9047; C9113; J0360; J1940; J2270; P9016